=== PATIENT | female | born 1950 | race Caucasian/White ===

== ENCOUNTER 2018-09-10 13:54 | Outpatient (CLI) | payer MEDICARE ==
--- NOTE | 2018-09-10 17:17 | MRI ---
MRI LUMBAR SPINE WITH AND WITHOUT CONTRAST: 09/10/18 Multiplanar and multisequential imaging lumbar spine obtained. INDICATIONS: Low back pain. Radiation to both legs. Comparison made to MRI lumbar spine exam of 12/27/15. FINDINGS: Lumbar vertebra maintain normal height. Cervical body signal is normal. There is a slight posterolist hesis at L2-3 which is unchanged from prior exam. Pedicle screws at L4-5 again noted. At L1-2, minimal disc bulge without central canal stenosis. At L2-3, there is a slight posterolisthesis as noted above. There is a diffuse disc bulge which is mo re prominent than on the prior study. This flattens the anterior thecal sac. There is moderate facet hypertrophy. There is posterior epidural fat. These changes result in mild central canal stenosis. Th ere is left foraminal stenosis due to asymmetric disc bulge and facet hypertrophy. At L3-4, mild diffuse disc bulge combined with facet hypertrophy and posterior epidural fat results i n mild central canal stenosis. Pedicle screws at L5. At L4-5, no significant disc bulge or protrusion. Posterior laminectomy change. No significant centra l canal stenosis. Pedicle screws at L5. At L5-S1, no significant disc bulge or protrusion. IMPRESSION: Broad based bulge at L2-3 is more prominent today resulting in mild central canal stenosis. Mild cent ral canal stenosis also seen at L3-4 as described. POS: ANI
== END 2018-09-10 13:55 | disposition home or self-care (01) ==
LOC: SCSMRI 13:54
PROVIDERS: ATTEND Neurological Surgery
DX: M54.5 Low back pain (principal); M48.061 Spinal stenosis, lumbar region without neurogenic claudication; M79.604 Pain in right leg; M79.605 Pain in left leg; M51.86 Other intervertebral disc disorders, lumbar region
CPT/HCPCS: 72158; 82565

== ENCOUNTER 2018-10-02 10:32 | Outpatient (CLI) | payer MEDICARE ==
--- NOTE | 2018-10-02 14:02 | RAD ---
BIPHASIC ESOPHAGRAM: Date: 10/02/18 HISTORY: Esophageal dysphagia, reflux, irregular bowel habits. FINDINGS: Swallowing is grossly normal. There is unobstructed flow of contrast through the esophagus and into t he stomach. Tertiary contractions are seen in the esophagus. A paraesophageal hiatal hernia is presen t. Severe spontaneous GE reflux demonstrated. A 12 mm tablet passed promptly from the esophagus into the stomach. IMPRESSION: 1. Paraesophageal hiatal hernia. 2. Presbyesophagus. 3. Severe GE reflux. POS: ANI
== END 2018-10-02 10:33 | disposition home or self-care (01) ==
LOC: RAD 10:32
PROVIDERS: ATTEND Internal Medicine Gastroenterology
DX: K21.9 Gastro-esophageal reflux disease without esophagitis (principal); R13.19 Other dysphagia; R19.4 Change in bowel habit; K22.8 Other specified diseases of esophagus; K44.9 Diaphragmatic hernia without obstruction or gangrene
CPT/HCPCS: 74220

== ENCOUNTER 2019-06-18 13:45 | Outpatient (CLI) | payer MEDICARE ==
--- NOTE | 2019-06-18 15:49 | BD ---
Exam: DEXA Bone Density 06/18/19 HISTORY: Osteoporosis. COMPARISON: None. FINDINGS: BMD (g/cm2) T-SCORE Z-SCORE Right wrist: One-third 0.648 -0.8 1.2 Mid 0.607 0.0 1.9 Ultra Distal 0.437 -0.1 1.3 Total 0.561 -0.3 1.5 Left forearm: One-third 0.648 -0.8 1.2 Mid 0.603 -0.1 1.8 Ultra distal 0.451 0.1 1.5 WHO classification: Normal. Impression: Normal bone mineral density. POS: HOME
--- NOTE | 2019-06-24 15:58 | MMO ---
Bilateral MAMMO Bilat Screen DDI+JAKE. CLINICAL HISTORY: Patient is 69 years old and is seen for screening. The patient has no family history of breast cancer. The patient has no personal history of cancer. The patient has a history of left Ultrasound Guided Core Biopsy in December, - benign. VIEWS: The views performed were: bilateral craniocaudal with tomosynthesis and bilateral mediolateral oblique with tomosynthesis. FILMS COMPARED: The present examination has been compared to prior imaging studies performed at [facility] on 09/30/2015, 04/03/2016 and 05/10/2017, and at [facility] on 06/02/2018. MAMMOGRAM FINDINGS: The breasts are heterogeneously dense, which could obscure a lesion on mammography. Benign calcifications are noted bilaterally. Left biopsy clip. There are no suspicious masses, suspicious calcifications, or new areas of architectural distortion. IMPRESSION: THERE IS NO MAMMOGRAPHIC EVIDENCE OF MALIGNANCY. A ROUTINE FOLLOW-UP MAMMOGRAM IN 1 YEAR IS RECOMMENDED. THE RESULTS OF THIS EXAM WERE SENT TO THE PATIENT. ACR BI-RADS Category 2 - Benign finding MAMMOGRAPHY NOTE: 1. A negative mammogram report should not delay a biopsy if a dominant of clinically suspicious mass is present. 2. Approximately 10% to 15% of breast cancers are not detected by mammography. 3. Adenosis and dense breasts may obscure an underlying neoplasm. Reported by: DUTCH DE LEON MD Electonically Signed: [id number]
== END 2019-06-18 13:46 | disposition home or self-care (01) ==
LOC: BICMAMMO 13:45
PROVIDERS: ATTEND Obstetrics & Gynecology
DX: Z12.31 Encounter for screening mammogram for malignant neoplasm of breast (principal); M81.0 Age-related osteoporosis without current pathological fracture; M85.80 Other specified disorders of bone density and structure, unspecified site; Z79.890 Hormone replacement therapy; Z91.89 Other specified personal risk factors, not elsewhere classified
CPT/HCPCS: 77063; 77067; 77080

== ENCOUNTER 2020-06-02 15:49 | Observation (INO) | payer MEDICARE ==
[2020-06-02] MEDS ORDERED: Ondansetron PF 4 MG/2 ML Vial ONE (16:18)
[2020-06-02] MEDS ORDERED: Ketorolac Tromethamine 30 MG/ML VIAL ONE (16:18)
[2020-06-02 16:37] LABS: #Basophils 0.1 thou/uL (0.0-0.2); #Eosinphils 0.1 thou/uL (0.0-0.7); #Lymphocytes 2.2 thou/uL (1.20-3.40); #Monocytes 0.7 thou/uL (0.11-0.59); #Neutrophils 8.2 thou/uL (1.40-6.50); %Basophils 0.7 % (0.0-1.0); %Eosinophils 0.5 % (0.0-10.0); %Lymphocytes 19.6 % (21.0-51.0); %Neutrophils 73.2 % (42.0-75.0); Hemoglobin 14.9 g/dL (12.0-16.0); Mean Corpuscular HGB CONC 33.5 g/dL (32.0-36.0); Mean Corpuscular Hemoglobin 33.5 pg (27.0-31.0); Mean Platelet Volume 7.3 fL (7.4-10.4); Platelet Count 332 thou/uL (130-400); Red Blood Cell (RBC) Count 4.46 mill/uL (4.20-5.40); White Blood Cell (WBC) Count 11.2 thou/uL (4.8-10.8)
--- NOTE | 2020-06-02 16:42 | RAD ---
CHEST 1 VIEW PORTABLE: Date: 06/02/2020 HISTORY: Preoperative evaluation. FINDINGS: Evidence for moderate to large hiatal hernia. No confluent pneumonia, overt edema, or pleural effusio n. IMPRESSION: Moderate to large hiatal hernia. Little change from prior exam of 10/02/2018. No evidence for signifi cant acute intrathoracic disease. POS: RRE
[2020-06-02 16:43] LABS: Prothrombin Time 13.3 sec (12.0-14.7)
--- NOTE | 2020-06-02 16:48 | CON ---
DATE OF CONSULTATION: CHIEF COMPLAINT: Left ankle pain. HISTORY OF PRESENT ILLNESS: Ms. Hoffman is a 70-year-old female who fell walking in her daughter's house today. She tripped over a toy. She twisted her ankle. She had an ankle fracture. She was seen in an urgent care and then transferred for further care. She has been found to have a displaced bimalleolar ankle fracture. She has been splinted. She is resting in a splint and has been given pain control. She ate a whataburger on the way over to the hospital. No other injuries. PAST MEDICAL HISTORY: 1. The patient has osteoporosis. 2. Hypertension. 3. She also has fibromyalgia. PAST SURGICAL HISTORY: 1. Bilateral total hip arthroplasties. 2. Left total knee arthroplasty. 3. No previous fractures. ALLERGIES: NO KNOWN DRUG ALLERGIES. MEDICATIONS: The patient takes medication for fibromyalgia and hypertension and she does not know the exact medications. SOCIAL HISTORY: The patient denies tobacco, alcohol, or drug use. She walks normally without any assistive device. FAMILY MEDICAL HISTORY: Negative. PHYSICAL EXAMINATION: GENERAL: The patient is alert, sitting upright, in no apparent distress. HEENT: Normocephalic and atraumatic. RESPIRATORY: Breathing comfortably. ABDOMEN: Soft, nontender, and nondistended. MUSCULOSKELETAL: The patient's left ankle has a splint, which is partially removed. The skin is intact. She does have some swelling of the medial ankle. No blistering. She has intact sensation on the dorsal and plantar aspect of the foot. She is able to wiggle the toes. Sensation is intact distally. IMAGING STUDIES: X-rays of the left ankle demonstrate a bimalleolar ankle fracture with lateral subluxation of the talus, this is acute. IMPRESSION: Left unstable bimalleolar ankle fracture. PLAN: At this point, the patient will remain in her splint. She will elevate her foot strictly. She will be n.p.o. at midnight. We will plan for surgical intervention tomorrow morning. She will have pain control and DVT prophylaxis. She will have antibiotics on-call to the operating room. All questions have been answered. Risks have been reviewed. Job ID: [id number]
[2020-06-02 16:56] LABS: ALT (SGPT) 25 U/L (8-55); AST (SGOT) 22 U/L (5-34); Albumin 4.6 g/dL (3.4-4.8); Alkaline Phosphatase 76 U/L (40-110); Anion Gap 13 mmol/L (10-20); BUN (Urea Nitrogen) 19 mg/dL (9.8-20.1); Bilirubin, Total 0.4 mg/dL (0.2-1.2); Calc. Creatinine Clearance 0 mL/min (70-130); Calcium 9.8 mg/dL (7.8-10.44); Carbon Dioxide 26 mmol/L (23-31); Chloride 105 mmol/L (98-107); Estimated GFR-MDRD 62; Globulin 3.1 g/dL (2.4-3.5); Glucose 155 mg/dL (80-115); Potassium 3.8 mmol/L (3.5-5.1); Protein, Total 7.7 g/dL (6.0-8.3); Sodium 140 mmol/L (136-145)
[2020-06-02] MEDS ORDERED: Ondansetron PF 4 MG/2 ML Vial IVP PRN ×2 (18:02→19:46)
[2020-06-02] MEDS ORDERED: Dextrose 5% in Water 1,000 ML IV PRN (18:02)
[2020-06-02] MEDS ORDERED: Dextrose 50% Abboject 50 ML SYRINGE SLOW IVP PRN (18:02)
[2020-06-02] MEDS ORDERED: traMADol HCl 50 MG TAB PO PRN ×2 (18:09→22:42)
[2020-06-02] MEDS ORDERED: HYDROcodone/Acetaminophen 5/325 mg Tablet PO PRN ×2 (18:09→22:42)
[2020-06-02 18:33] LABS: Bacteria/HPF None Seen HPF (None Seen); Bilirubin Negative (Negative); Blood, Urine Negative (Negative); Clarity Clear (Clear); Glucose, Urine (Dipstick) Normal (Negative); Ketone, Urine Negative (Negative); Leukocyte 500 Leu/uL (Negative); Nitrite Negative (Negative); Protein, Urine (Dipstick) 20 mg/dL (Neg-Trace); RBC/HPF 0-3 HPF (0-3); Transitional Epithelial 0-3 HPF (None Seen); Urobilinogen Normal mg/dL (Less than 2); WBC/HPF Greater than 50 HPF (0-3); pH, Urine 5.5 (5.0-9.0)
--- NOTE | 2020-06-02 19:07 | HP ---
CRITICAL CARE/TRAUMA ATTENDING: Yordan Babcock DO PRIMARY CARE PHYSICIAN: Ken Garcia MD HISTORY OF PRESENT ILLNESS: Ms. Hoffman is a 70-year-old female with past medical history of fibromyalgia; hypertension; hyperlipidemia; chronic back pain; skin cancer, squamous cell in nature, presents to the emergency department from [facility] with a left trimalleolar ankle fracture, status post reduction and splint placement. Orthopedics has been consulted, who recommended admission and operative repair in the morning. The patient has no other injury. She states that she slipped on a rug at her daughter's house early this morning and finally presented with pain. She has again no other injuries and did not strike her head. No neck pain. No back pain. No shortness of air. No nausea, vomiting, or diarrhea. No sick contacts. No recent fever. No cough. No head pain. She does have chronic back pain. She does have a little bit of right elbow pain, but has full range of motion. REVIEW OF SYSTEMS: Pertinent positives and negatives per HPI, otherwise regarded as negative. PAST MEDICAL HISTORY: Fibromyalgia, hypertension, hyperlipidemia, chronic back pain, and skin cancer. PAST SURGICAL HISTORY: Bilateral hip replacements, left knee replacement, eve to the spine by Dr. Mckeon, hysterectomy, tubal ligation prior to the hysterectomy, cataract surgeries and lens implants. MEDICATIONS: 1. Simvastatin. 2. Omeprazole. 3. Lisinopril/hydrochlorothiazide 20/12.5. 4. Aspirin 325 mg daily. 5. Xanax 0.25 mg nightly. 6. CoQ10. 7. Lyrica 75 mg at night and 50 mg in the morning. 8. Multivitamin. 9. Savella. 10. Meloxicam. 11. [place] . 12. Flaxseed oil. 13. Shanta. 14. Stool softeners. 15. Flexeril. ALLERGIES: NO KNOWN DRUG ALLERGIES. FAMILY HISTORY: Significant for arthritis in her mother who is 100 years old, living and has actually survived COVID. Heart disease resulted in her father's at age 84. SOCIAL HISTORY: The patient is a lifelong nonsmoker. No tobacco use. Occasionally drinks alcohol. 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 She is for 50 years and lives in [place]. PHYSICAL EXAMINATION: VITAL SIGNS: Blood pressure 126/86, heart rate is 106. She is saturating 98%, breathing 14 times per minute. GENERAL: A 70-year-old female, sitting up in no acute distress. HEENT: Normocephalic, atraumatic. NECK: Trachea is midline. No JVD is appreciated. RESPIRATORY: Equal rise and fall. Bilateral breath sounds. Clear to auscultation in upper and lower bilaterally. CARDIOVASCULAR: She has a tachycardic regular rhythm. I do feel like there is a diastolic murmur, clicking or possibly opening snap, I am unsure. She states that she has never had a murmur in the past. She has strong pulses. No edema. ABDOMEN: Protuberant, but soft and nontender. No masses, guarding, or rigidity. Pelvis is stable. MUSCULOSKELETAL: She has sensation in all extremities. She has sensation even distal to the left lower extremity. The left lower extremity is in a splint. She has good cap refill, some tenderness to the right elbow, no gross deformity, and full range of motion. NEUROLOGIC: Alert and oriented to person, place, time, and event. PSYCHIATRIC: Normal mood and affect. DIAGNOSTIC CRITERIA: LABORATORY: White blood cell count 11.2, platelets are 332, hemoglobin and hematocrit 14.9 and 44.7 respectively. Sodium is 140, potassium 3.5, chloride is 105, CO2 is 26, BUN of 19, creatinine 0.9, glucose 155, calcium 9.8, total bilirubin 0.4, AST and ALT 22 and 25 respectively, alkaline phosphatase is 76. INR is 1.0. A chest x-ray shows a hiatal hernia. Ankle x-ray shows a trimalleolar with ankle mortise disruption of the left. ASSESSMENT: 1. Left trimalleolar ankle fracture needing operative repair. 2. Acute traumatic pain. 3. Hyperglycemia without known diabetes. 4. History of hypertension, hyperlipidemia, chronic pain, and fibromyalgia. PLAN: 1. We will admit the patient to surgery [place]. 2. Pain management. 3. Trauma bowel regimen. 4. Orthopedics was consulted. Appreciate recommendations. 5. N.p.o. after midnight. 6. Check hemoglobin A1c. 7. We will continue home medications. 8. PT/OT eval. 9. Diet will be n.p.o. after midnight and then a regular diet. 10. Full code. 11. Access of peripheral IVs. She has a PureWick in place. 12. Activity is going to be nonweightbearing to left lower extremity. 13. Disposition is to surgery [place]. 14. Coordinate care with the emergency department staff and the orthopedics team. Case was discussed Dr. Babcock and can be updated as needed. Job ID: [id number]
[2020-06-02] MEDS ORDERED: Ondansetron ODT 4 MG TAB SL PRN (19:46)
[2020-06-02] MEDS ORDERED: Morphine 4 MG/ML VIAL SLOW IVP PRN (19:46)
[2020-06-02] MEDS ORDERED: Gabapentin 300 MG CAP PO SCH (21:00)
[2020-06-02] MEDS ORDERED: Atorvastatin Calcium 10 MG TAB PO SCH (21:00)
[2020-06-02] MEDS ORDERED: Docusate Sodium 100 MG/10 ML UDCUP PO PRN (21:16)
[2020-06-02 21:33] VITALS: BMI 35.2
[2020-06-02] MEDS ORDERED: TAPENTADOL HCL PO SCH (22:45)
[2020-06-02] MEDS ORDERED: CEFAZOLIN 2 GM in Premix Bag 1 BAG IVPB SCH (22:45)
[2020-06-02] MEDS: Ibuprofen 200 MG TAB PO SCH (22:56)
[2020-06-02] MEDS: Acetaminophen 325 MG TAB PO SCH (23:00)
[2020-06-02] MEDS: traMADol HCl 50 MG TAB PO SCH (23:01)
[2020-06-02] MEDS ORDERED: Acetaminophen 325 MG TAB PO SCH (23:59)
[2020-06-02] MEDS ORDERED: traMADol HCl 50 MG TAB PO SCH (23:59)
[2020-06-03 05:22] LABS: #Eosinphils 0.1 thou/uL (0.0-0.7); #Lymphocytes 1.5 thou/uL (1.20-3.40); #Monocytes 0.6 thou/uL (0.11-0.59); #Neutrophils 4.4 thou/uL (1.40-6.50); %Basophils 0.6 % (0.0-1.0); %Eosinophils 1.3 % (0.0-10.0); %Lymphocytes 23.2 % (21.0-51.0); %Monocytes 8.9 % (0.0-10.0); Hemoglobin 11.9 g/dL (12.0-16.0); Mean Corpuscular HGB CONC 32.8 g/dL (32.0-36.0); Mean Corpuscular Hemoglobin 33.1 pg (27.0-31.0); Mean Platelet Volume 7.4 fL (7.4-10.4); Platelet Count 248 thou/uL (130-400); RBC Distribution Width 11.9 % (11.5-14.5); White Blood Cell (WBC) Count 6.6 thou/uL (4.8-10.8)
[2020-06-03] MEDS: Acetaminophen 325 MG TAB PO SCH ×2 (05:28→13:20)
[2020-06-03] MEDS: traMADol HCl 50 MG TAB PO SCH ×3 (05:28→18:21)
[2020-06-03 05:44] LABS: Anion Gap 9 mmol/L (10-20); BUN (Urea Nitrogen) 17 mg/dL (9.8-20.1); Calc. Creatinine Clearance 103 mL/min (70-130); Calcium 8.7 mg/dL (7.8-10.44); Carbon Dioxide 28 mmol/L (23-31); Chloride 109 mmol/L (98-107); Estimated GFR-MDRD 75; Glucose 106 mg/dL (80-115); Magnesium 2.1 mg/dL (1.6-2.6); Phosphorus 4.4 mg/dL (2.3-4.7); Potassium 4.6 mmol/L (3.5-5.1); Sodium 141 mmol/L (136-145)
[2020-06-03] MEDS ORDERED: SAVELLA 100 MG PO SCH (08:00)
[2020-06-03] MEDS ORDERED: CEFAZOLIN 2 GM in Premix Bag 1 BAG IVPB SCH (08:00)
[2020-06-03] MEDS ORDERED: Lisinopril/Hydrochlorothiazide 20 mg/12.5 mg Tablet PO SCH (09:00)
[2020-06-03] MEDS ORDERED: TAPENTADOL HCL PO SCH (09:00)
[2020-06-03] MEDS: Mometasone 100 MCG/Formoterol 5 MCG 120 PUFF INHALER INH SCH (09:25)
[2020-06-03] MEDS ORDERED: HYDROcodone/Acetaminophen 5/325 mg Tablet PO PRN (09:51)
[2020-06-03] MEDS ORDERED: Scopolamine 1.5 mg/72 hour Patch ONE (10:02)
[2020-06-03] MEDS ORDERED: Fentanyl 100 MCG/2 ML VIAL ONE ×4 (10:27→12:50)
[2020-06-03] MEDS: Atorvastatin Calcium 40 MG TAB PO SCH (11:24)
[2020-06-03] MEDS: Cholecalciferol 1,000 UNITS (25 MCG) TAB PO SCH (11:25)
[2020-06-03] MEDS: Lisinopril/Hydrochlorothiazide 20 mg/12.5 mg Tablet PO SCH (11:25)
[2020-06-03] MEDS: Magnesium Oxide 250 MG TAB PO SCH (11:25)
[2020-06-03] MEDS: Gabapentin 300 MG CAP PO SCH ×2 (11:25→21:20)
[2020-06-03] MEDS: Cyanocobalamin (Vitamin B-12) 1,000 MCG TAB PO SCH (11:25)
[2020-06-03] MEDS: cycloSPORINE 0.05% Ophthalmic Droperette EA EYE SCH ×2 (11:26→21:20)
[2020-06-03] MEDS: TAPENTADOL HCL PO SCH ×3 (11:26→21:19)
[2020-06-03] MEDS: Multivitamin W/ Minerals 1 TAB PO SCH (11:26)
[2020-06-03] MEDS ORDERED: Promethazine HCl 25 MG/ML VIAL SLOW IVP PRN (11:28)
[2020-06-03] MEDS ORDERED: Promethazine HCl 25 MG/ML VIAL IM PRN (11:28)
[2020-06-03] MEDS ORDERED: PACU-Morphine 4MG/ML VIAL SLOW IVP PRN (11:28)
[2020-06-03] MEDS ORDERED: Morphine 4 MG/ML VIAL ONE ×2 (12:22→13:12)
[2020-06-03] MEDS ORDERED: Ondansetron PF 4 MG/2 ML Vial ONE (13:21)
[2020-06-03] MEDS ORDERED: Lidocaine 1% PF 5 ML VIAL ONE (13:21)
[2020-06-03] MEDS ORDERED: Dexamethasone 20 MG/5 ML VIAL ONE (13:21)
[2020-06-03] MEDS ORDERED: Metoprolol Tartrate 5 MG/5 ML VIAL ONE (13:21)
[2020-06-03] MEDS ORDERED: PROPOFOL 200 MG/20 ML VIAL ONE (13:21)
[2020-06-03] MEDS ORDERED: Cyclobenzaprine 10 MG TAB PO PRN (16:36)
[2020-06-03] MEDS: Ibuprofen 200 MG TAB PO SCH ×3 (16:42→21:22)
--- NOTE | 2020-06-03 16:53 | RAD ---
Exam: XR Ankle Lt 2 View HISTORY: ORIF left ankle. COMPARISON: 06/02/2020 FINDINGS: A lateral plate and multiple screws now transfix the previously seen fracture distal left fibula. 2 s crews now transfix the fracture of the medial malleolus. There is improvement in alignment of the fracture fragments. There has been improvement in dislocation at the tibiotalar joint with interval r eduction in the dislocation. Correlation with intraoperative findings is recommended. Fluoroscopy: Time-4.9 seconds Dose-0.16 mGy
--- NOTE | 2020-06-03 17:02 | PRG ---
DATE OF SERVICE: 06/03/2020 SUBJECTIVE: The patient was seen this morning during rounds. She was postop after fixation of a left trimalleolar fracture after mechanical fall from standing. Upon our evaluation, the patient reported her pain was well controlled, but she was complaining that she was very hot and nauseous postoperatively, generally not feeling very good after anesthesia. She has not worked with Physical or Occupational Therapy yet. She has not had anything to eat or drink yet. She has not voided yet. OBJECTIVE: VITAL SIGNS: Temperature 98, pulse 90, respirations 16, oxygen saturation 96% on room air, blood pressure 104/69. GENERAL: Well-appearing elderly female, sitting up in bed with no signs of acute distress. PULMONARY: Equal chest rise and fall. Clear breath sounds bilaterally. No signs of acute respiratory distress. CARDIAC: Regular rate and rhythm. GI: Abdomen is soft, nontender, and nondistended. EXTREMITIES: 2+ pulses in all extremities. No significant swelling noted. The patient has a splint to her left lower extremity that is clean, dry, and intact. NEUROLOGIC: GCS is 15. LABORATORY FINDINGS: White count 6.6, hemoglobin 11.9, hematocrit 36.3, platelets 248. Sodium 141, potassium 4.6, chloride 109, bicarb 28, BUN 17, creatinine 0.76, glucose 106, phosphorus 4.4, magnesium 2.1. DIAGNOSTIC FINDINGS: There are no new diagnostic findings to report. ASSESSMENT: 1. Status post mechanical fall from standing. 2. Left trimalleolar fracture, status post repair. 3. History of fibromyalgia, chronic back pain, hypertension, and hyperlipidemia. PLAN: Continue current diet and pain regimen. Start physical and occupational therapy. Restart home medications as clinically indicated. We will wait for the patient to continue to recover from anesthesia as well as gain further recommendations by Orthopedic Surgery before discharging the patient home. We will start the patient on Lovenox tomorrow for DVT prophylaxis. This patient was seen and examined by Dr. Babcock and myself this morning during rounds. Job ID: [id number]
[2020-06-03] MEDS: Acetaminophen 500 MG TAB PO SCH (18:22)
--- NOTE | 2020-06-03 20:09 | OP ---
DATE OF PROCEDURE: 06/03/2020 PREOPERATIVE DIAGNOSIS: Left trimalleolar ankle fracture. POSTOPERATIVE DIAGNOSIS: Left trimalleolar ankle fracture. PROCEDURE PERFORMED: Open reduction and internal fixation of left trimalleolar ankle fracture. ANESTHESIA: General. FORESTRY PILOT: [place]. TOURNIQUET TIME: 41 minutes at 300 mmHg. IMPLANTS: Synthes locking small frag set was used with a 6-hole 1/3 tubular plate for the lateral malleolus. COMPLICATIONS: None. DRAINS: None. SPECIMEN: None. OUTCOME: Satisfactory. INDICATIONS FOR PROCEDURE: The patient is a 70-year-old lady, status post ground level fall sustaining a twisting injury to left lower extremity. Upon arrival at [place], she was found to have a trimalleolar ankle fracture with a very small posterior malleolar fragment and a displaced and somewhat laterally subluxed talus within the mortise. After discussion with the patient including risks and benefits, we decided to proceed with open reduction and internal fixation. Informed consent has been obtained. I believe all questions answered. DESCRIPTION OF PROCEDURE: The patient was brought to the operating room and a time-out performed followed by induction of general anesthesia. The patient was then positioned supine on the OR table and a sterile prep and drape was performed to the left lower extremity. Next, the limb was exsanguinated with Esmarch bandage and tourniquet inflated to 300 mmHg. A vertical incision was made overlying the lateral malleolus after skin was sharply incised. Dissection was carried down bluntly exposing the lateral cortex of the distal fibula. Using minimal subperiosteal dissection, fracture periosteum was removed from the fracture gap, such that the edges of the cortex at the fracture could be visualized. The fracture was then reduced and held in place with a bone tenaculum. Next, an anterior to posterior inter-fragmentary compression screw was applied, this getting excellent compression across the fracture. This was then followed by contouring of a 6-hole 1/3 tubular plate to fit the lateral cortex of the distal fibula. This was held in place with 2 cancellous screws distally and 3 cortical screws proximally gaining good stabilization of the lateral malleolus. Next, a second incision was made overlying the medial malleolus after skin was sharply incised. Dissection was carried down bluntly exposing the fracture. Again, periosteal flaps were removed from the fracture and the fracture reduced and held in place with a bone tenaculum. This was followed by two 45 mm long partially-threaded cancellous screws passed from the tip of the medial malleolus up into the distal tibial metaphysis. At the completion of this, AP, lateral, and mortise images of the ankle were obtained that showed near anatomic alignment. The small posterior malleolar fragment was very minor portion of the total surface area of the distal tibia and as such, it was left alone. The 2 wounds were then irrigated with bulb syringe and closed in layers with 0 Vicryl followed by 2-0 Vicryl and gregory. Xeroform gauze, Webril, and fiberglass splint were applied to the leg. Tourniquet was let down at the completion of dressing and the patient was transferred to recovery room in stable condition. There were no complications. The patient tolerated the procedure well. Job ID: [id number]
[2020-06-03] MEDS ORDERED: MILNACIPRAN HCL 100 MG PO SCH (21:00)
[2020-06-03] MEDS: sulfaSALAzine 500 MG TAB PO SCH (21:22)
[2020-06-04] MEDS: traMADol HCl 50 MG TAB PO SCH ×3 (00:20→12:09)
[2020-06-04] MEDS: Acetaminophen 500 MG TAB PO SCH ×3 (00:20→12:08)
[2020-06-04 05:49] LABS: Hemoglobin 12.2 g/dL (12.0-16.0); Mean Corpuscular HGB CONC 32.6 g/dL (32.0-36.0); Mean Corpuscular Hemoglobin 32.8 pg (27.0-31.0); Mean Platelet Volume 7.8 fL (7.4-10.4); Platelet Count 261 thou/uL (130-400); RBC Distribution Width 11.9 % (11.5-14.5); Red Blood Cell (RBC) Count 3.71 mill/uL (4.20-5.40); White Blood Cell (WBC) Count 8.5 thou/uL (4.8-10.8)
[2020-06-04] MEDS: Ibuprofen 200 MG TAB PO SCH (05:58)
[2020-06-04 06:16] LABS: Anion Gap 11 mmol/L (10-20); BUN (Urea Nitrogen) 12 mg/dL (9.8-20.1); Calc. Creatinine Clearance 111 mL/min (70-130); Calcium 8.7 mg/dL (7.8-10.44); Carbon Dioxide 25 mmol/L (23-31); Chloride 107 mmol/L (98-107); Estimated GFR-MDRD 83; Glucose 109 mg/dL (80-115); Phosphorus 4.2 mg/dL (2.3-4.7); Potassium 4.5 mmol/L (3.5-5.1); Sodium 138 mmol/L (136-145)
[2020-06-04] MEDS: Mometasone 100 MCG/Formoterol 5 MCG 120 PUFF INHALER INH SCH (07:14)
[2020-06-04] MEDS ORDERED: Enoxaparin Sodium 40 MG/0.4 ML SYRINGE SC SCH (09:00)
[2020-06-04] MEDS: Cholecalciferol 1,000 UNITS (25 MCG) TAB PO SCH (10:04)
[2020-06-04] MEDS: Gabapentin 300 MG CAP PO SCH (10:05)
[2020-06-04] MEDS: Magnesium Oxide 250 MG TAB PO SCH (10:05)
[2020-06-04] MEDS: Multivitamin W/ Minerals 1 TAB PO SCH (10:05)
[2020-06-04] MEDS: Atorvastatin Calcium 40 MG TAB PO SCH (10:05)
[2020-06-04] MEDS: Cyanocobalamin (Vitamin B-12) 1,000 MCG TAB PO SCH (10:05)
[2020-06-04] MEDS: Lisinopril/Hydrochlorothiazide 20 mg/12.5 mg Tablet PO SCH (10:05)
[2020-06-04] MEDS: cycloSPORINE 0.05% Ophthalmic Droperette EA EYE SCH (10:07)
[2020-06-04 11:59] VITALS: BP 113/76; TEMP 97.6
[2020-06-04] MEDS: sulfaSALAzine 500 MG TAB PO SCH (12:10)
[2020-06-04] MEDS: TAPENTADOL HCL PO SCH (12:12)
--- NOTE | 2020-06-04 16:48 | DIS ---
DATE OF ADMISSION: 06/02/2020 DATE OF DISCHARGE: 06/04/2020 ADMISSION DIAGNOSES: Mechanical fall from standing, right trimalleolar fracture, acute traumatic pain. DISCHARGE DIAGNOSES: Mechanical fall from standing, right trimalleolar fracture, acute traumatic pain. CONSULTING PHYSICIAN: Dr. Rogers of Orthopedic Surgery. PROCEDURES: The patient went to the OR on June 03, 2020 and had an ORIF of the left trimalleolar ankle fracture. HOSPITAL COURSE: The patient is a 70-year-old female, presented to the emergency department after a mechanical fall from standing, she had a left trimalleolar fracture and she was admitted to the hospital and the next day she went to the OR with Dr. Rogers and had an ORIF of the left trimalleolar fracture. The patient has a history of chronic pain and sees a pain specialist. We continued her home gabapentin, but placed her on our medications for acute pain, which included Tylenol, gabapentin, ibuprofen, and tramadol. At the time of discharge, her pain was well controlled on that regimen. At time of discharge, the patient's pain was well controlled. She was tolerating a heart healthy diet. She was getting around safely with a walker with physical therapy. Her daughter was at bedside and the patient was going to be discharged home with family support. DISCHARGE DISPOSITION: Home. DISCHARGE CONDITION: Satisfactory. PHYSICAL EXAMINATION: VITAL SIGNS: Temperature 97.6, pulse rate 84, respirations are 16, oxygen saturation 99% on room air, and blood pressure 113/76. GENERAL: A well-appearing elderly female, sitting up in bed with no signs of acute distress. PULMONARY: Equal chest rise and fall. Clear breath sounds bilaterally. No signs of acute respiratory distress. CARDIAC: Regular rate and rhythm. GASTROINTESTINAL: Soft, nontender, and nondistended. EXTREMITIES: 2+ pulses in all extremities. Gross motor and sensation intact. No significant swelling noted. The patient has a splint to her left lower extremity that is clean, dry, and intact. NEUROLOGIC: GCS is 15. DISCHARGE INSTRUCTIONS: The patient was discharged home, activity as tolerated. Nonweightbearing to the left lower extremity. Regular diet. She has a walker. DISCHARGE MEDICATIONS: Include her home medications with the addition of Tylenol, ibuprofen, and tramadol. The patient is taking her home gabapentin dose. She is to receive also Lovenox for a total of 14 days after discussing with the pharmacist about her pain regimen. The patient was also instructed to hold her home Nucynta, which is prescribed by Dr. Funk, her pain specialist. The trauma team will contact Dr. Funk on Saturday when he is back in his office to inform him, we asked the patient to hold her long-term pain medication and use our pain regimen including tramadol in order to treat her acute traumatic pain and acute postoperative pain for the next two weeks. I also did discuss this with the pharmacist I filled her prescription. FOLLOWUP APPOINTMENTS: The patient is to follow up with Dr. Rogers in 2 weeks. No need for followup with Dr. Babcock and Trauma Clinic. This is a summary of the patient's hospitalization. For full details, please see her medical record in its entirety. The patient was seen and evaluated by myself on the day of discharge. Job ID: [id number]
== END 2020-06-04 13:55 | disposition home or self-care (01) ==
LOC: ERS 15:49 → SURG A 16:48 → ERS 19:17
PROVIDERS: ADMIT Surgery; ATTEND Surgery
PROC: 0QSK04Z Reposition Left Fibula with Internal Fixation Device, Open Approach (ICD-10-PCS; principal; 2020-06-03)
PROC: 0QSH04Z Reposition Left Tibia with Internal Fixation Device, Open Approach (ICD-10-PCS; 2020-06-03)
DX: S82.852A Displaced trimalleolar fracture of left lower leg, initial encounter for closed fracture (principal); G89.11 Acute pain due to trauma; R73.9 Hyperglycemia, unspecified; I10 Essential (primary) hypertension; E78.5 Hyperlipidemia, unspecified; G89.29 Other chronic pain; M54.9 Dorsalgia, unspecified; M79.7 Fibromyalgia; M81.0 Age-related osteoporosis without current pathological fracture; J45.909 Unspecified asthma, uncomplicated; K21.9 Gastro-esophageal reflux disease without esophagitis; Z79.82 Long term (current) use of aspirin; Z79.899 Other long term (current) drug therapy; X50.1XXA Overexertion from prolonged static or awkward postures, initial encounter; W01.0XXA Fall on same level from slipping, tripping and stumbling without subsequent striking against object, initial encounter; Y92.009 Unspecified place in unspecified non-institutional (private) residence as the place of occurrence of the external cause
CPT/HCPCS: 27822; 71045; 73600; 76000; 80048 ×2; 80053; 83735 ×2; 84100 ×2; 85025 ×2; 85027; 85610; 85730; 93005; 94640 ×2; 94664; 96361; 96374; 96375; 97116; 97139 ×5; 99284; C1713 ×5; 36415; 81003; 81015; 96372; 96376; G0378; J0690; J1100; J1650; J1885; J2001; J2270; J2405; J2704; J3010

== ENCOUNTER 2021-01-04 13:57 | Outpatient (CLI) | payer MEDICARE ==
--- NOTE | 2021-01-04 14:34 | MMO ---
Bilateral MAMMO Bilat Diag DDI+JAKE. CLINICAL HISTORY: Patient is 70 years old and is seen for diagnostic exam. The patient has no family history of breast cancer. The patient has no personal history of cancer. The patient has a history of left Ultrasound Guided Core Biopsy in December, - benign. VIEWS: The views performed were: bilateral craniocaudal with tomosynthesis; bilateral mediolateral oblique with tomosynthesis; and bilateral mediolateral with tomosynthesis. FILMS COMPARED: The present examination has been compared to prior imaging studies performed at [facility] on 05/10/2017, 06/18/2019 and 01/04/2021, and at [facility] on 06/02/2018. This study has been interpreted with the assistance of computer-aided detection. MAMMOGRAM FINDINGS: The breasts are heterogeneously dense, which could obscure a lesion on mammography. Finding 1: There are stable benign appearing calcifications seen in both breasts. A biopsy clip is seen in the left breast. Finding 2: There are no mammographic abnormalities to explain the patient's breast pain. The patient is referred back to her clinician. Negative imaging findings should not preclude biopsy if clinical findings are suspicious. There are no suspicious masses, suspicious calcifications, or new areas of architectural distortion. IMPRESSION: FINDING 2: THERE ARE NO MAMMOGRAPHIC ABNORMALITIES TO EXPLAIN THE PATIENT'S BREAST PAIN. THE PATIENT IS REFERRED BACK TO HER CLINICIAN. NEGATIVE IMAGING FINDINGS SHOULD NOT PRECLUDE BIOPSY IF CLINICAL FINDINGS ARE SUSPICIOUS. THE RESULTS OF THIS EXAM WERE SENT TO THE PATIENT. ACR BI-RADS Category 2 - Benign finding MAMMOGRAPHY NOTE: 1. A negative mammogram report should not delay a biopsy if a dominant of clinically suspicious mass is present. 2. Approximately 10% to 15% of breast cancers are not detected by mammography. 3. Adenosis and dense breasts may obscure an underlying neoplasm. Reported by: LUIS M ROMAN MD Electonically Signed: [id number]
== END 2021-01-04 13:58 | disposition home or self-care (01) ==
LOC: BICMAMMO 13:57
PROVIDERS: ATTEND Obstetrics & Gynecology
DX: N64.4 Mastodynia (principal)
CPT/HCPCS: 77066; G0279

== ENCOUNTER 2021-08-22 14:42 | Outpatient (CLI) | payer MEDICARE | END 2021-08-22 14:43 | disposition home or self-care (01) | LOC: BICRAD 14:42 | PROVIDERS: ATTEND Nurse Practitioner Family | DX: M79.671 Pain in right foot (principal) ==

== ENCOUNTER 2023-01-30 14:24 | Outpatient (CLI) | payer MEDICARE ==
[2023-01-30 16:23] LABS: #Basophils 0.1 10x3/uL (0.0-0.2); #Eosinphils 0.4 10x3/uL (0.0-0.5); #Monocytes 0.7 10x3/uL (0.0-1.1); #Neutrophils 3.8 10x3/uL (1.5-8.4); %Basophils 0.8 % (0.0-2.0); %Eosinophils 5.7 % (0.0-6.0); %Lymphocytes 32.6 % (18.0-47.0); %Monocytes 9.2 % (0.0-10.0); %Neutrophils 51.3 % (40.0-75.0); Hemoglobin 10.8 g/dL (12.0-15.5); Mean Corpuscular HGB CONC 30.8 g/dL (32.0-36.0); Mean Corpuscular Hemoglobin 27.8 pg (27.0-33.0); Mean Corpuscular Volume 90.2 fl (81.6-98.3); Mean Platelet Volume 10.9 fl (7.4-10.4); Platelet Count 489 10x3/uL (150-450); RBC Distribution Width 15.1 % (11.5-14.5); Red Blood Cell (RBC) Count 3.89 10x6/uL (3.90-5.03); White Blood Cell (WBC) Count 7.4 10x3/uL (3.5-10.5)
[2023-01-30 16:40] LABS: Anion Gap 16 mmol/L (10-20); BUN (Urea Nitrogen) 14 mg/dL (9.8-20.1); Calc. Creatinine Clearance 0 mL/min (70-130); Calcium 9.1 mg/dL (7.8-10.44); Carbon Dioxide 24 mmol/L (23-31); Chloride 104 mmol/L (98-107); Estimated GFR 86; Glucose 102 mg/dL (83-110); Potassium 4.2 mmol/L (3.5-5.1); Prothrombin Time 10.7 sec (9.5-12.1); Sodium 140 mmol/L (136-145)
== END 2023-01-30 14:25 | disposition home or self-care (01) ==
LOC: LABBT 14:24
PROVIDERS: ATTEND Orthopaedic Surgery
DX: Z01.818 Encounter for other preprocedural examination (principal); M17.11 Unilateral primary osteoarthritis, right knee
CPT/HCPCS: 80048; 85025; 85610; 87081; 93005; 93010

== ENCOUNTER 2023-02-04 05:41 | Observation (INO) | payer MEDICARE ==
[2023-02-04] MEDS ORDERED: Tranexamic Acid 1,000 MG/10 ML VIAL ONE (06:03)
[2023-02-04] MEDS ORDERED: Sodium Chloride 0.9% 100 ML ONE ×2 (06:03→06:58)
[2023-02-04] MEDS ORDERED: Vancomycin (BATCH) 1.5 GRAM/300 ML BAG ONE (06:04)
[2023-02-04] MEDS ORDERED: fentaNYL PF 100 MCG/2 ML SYRINGE ONE ×2 (06:09→13:49)
[2023-02-04] MEDS ORDERED: Midazolam HCl 2 mg/2 ml Vial ONE (06:09)
[2023-02-04] MEDS ORDERED: PHENYLEPHRINE-NS 100 MCG/ML 10 ML SYRINGE ONE (06:10)
[2023-02-04] MEDS ORDERED: Bupivacaine PF 0.5% 30 ML VIAL ONE ×2 (06:24→08:29)
[2023-02-04] MEDS ORDERED: Dexamethasone 20 MG/5 ML VIAL ONE (06:30)
[2023-02-04] MEDS ORDERED: PROPOFOL 200 MG/20 ML VIAL ONE (06:30)
[2023-02-04] MEDS ORDERED: Lidocaine 1% PF 5 ML VIAL ONE (06:30)
[2023-02-04] MEDS ORDERED: Ondansetron PF 4 MG/2 ML Vial ONE (06:30)
[2023-02-04] MEDS ORDERED: Bupivacaine HCl 0.5%/Epinephrine 1:200,000/PF 30 ml Vial ONE (06:30)
[2023-02-04] MEDS ORDERED: diphenhydrAMINE 25 MG CAP PO PRN (06:44)
[2023-02-04] MEDS ORDERED: Acetaminophen 325 MG TAB PO PRN (06:44)
[2023-02-04] MEDS ORDERED: HYDROcodone/Acetaminophen 10/325 mg Tablet PO PRN ×3 (06:44→09:00)
[2023-02-04] MEDS ORDERED: Fentanyl 100 MCG/2 ML VIAL SLOW IVP PRN ×2 (06:44)
[2023-02-04] MEDS ORDERED: Promethazine HCl 25 MG/ML VIAL IM PRN ×2 (06:44→08:45)
[2023-02-04] MEDS ORDERED: Ondansetron PF 4 MG/2 ML Vial IVP PRN ×2 (06:44→08:45)
[2023-02-04] MEDS ORDERED: Zolpidem Tartrate 5 MG TAB PO PRN ×2 (06:44→08:45)
[2023-02-04] MEDS ORDERED: CEFAZOLIN 2 GM VIAL ONE (06:58)
[2023-02-04 07:16] LABS: SARS-CoV-2 NAA Rapid Test Not Detected (NotDetected)
[2023-02-04] MEDS ORDERED: Mometasone 100 MCG/PUFF (1 INHALER) INH PRN (07:20)
[2023-02-04] MEDS ORDERED: Docusate Sodium 100 MG/10 ML UDCUP PO PRN (07:23)
[2023-02-04] MEDS ORDERED: HYDROmorphone 2 MG/ML VIAL ONE (07:52)
[2023-02-04] MEDS ORDERED: HYDROmorphone 2 MG/ML VIAL SLOW IVP PRN (08:24)
[2023-02-04] MEDS ORDERED: Ondansetron HCl/PF 4 MG/2 ML Vial IVP PRN (08:24)
[2023-02-04] MEDS ORDERED: Ropivacaine 0.2% 550 ML 550 ML NERVE BLCK SCH (08:45)
[2023-02-04] MEDS ORDERED: Fentanyl 100 MCG/2 ML VIAL IV PRN (08:52)
[2023-02-04] MEDS ORDERED: Labetalol HCl 100 MG/20 ML VIAL SLOW IVP PRN (08:59)
[2023-02-04] MEDS ORDERED: Milnacipran Hcl [Savella] 100 MG Tablet PO SCH (09:00)
[2023-02-04] MEDS ORDERED: Aspirin Chewable 81 MG TAB PO SCH (09:00)
[2023-02-04] MEDS ORDERED: traMADol HCl 50 MG TAB PO PRN ×2 (09:00)
[2023-02-04] MEDS ORDERED: HYDROmorphone 0.5 MG/0.5 ML SYRINGE ONE ×2 (09:02→13:41)
[2023-02-04] MEDS ORDERED: Fentanyl 100 MCG/2 ML VIAL ONE (09:44)
[2023-02-04] MEDS ORDERED: Promethazine HCl 25 MG/ML VIAL ONE (14:16)
[2023-02-04] MEDS: Sodium Chloride 0.9% 1,000 ML IV SCH ×2 (14:59→16:34)
[2023-02-04 15:07] VITALS: BMI 35.3
[2023-02-04] MEDS: Multivitamin W/ Minerals 1 TAB PO SCH (15:08)
[2023-02-04] MEDS: Aspirin 81 mg Enteric Coated Tablet PO SCH ×2 (15:08→21:22)
[2023-02-04] MEDS: Gabapentin 300 MG CAP PO SCH ×2 (15:08→21:23)
[2023-02-04] MEDS: Atorvastatin Calcium 40 MG TAB PO SCH (15:08)
[2023-02-04] MEDS: Lisinopril/Hydrochlorothiazide 20 mg/12.5 mg Tablet PO SCH (15:08)
[2023-02-04] MEDS: cycloSPORINE 0.05% Ophthalmic Droperette EA EYE SCH ×2 (15:08→21:25)
[2023-02-04] MEDS: Magnesium Oxide 250 MG TAB PO SCH (15:08)
[2023-02-04] MEDS: Loratadine 10 MG TAB PO SCH (15:08)
[2023-02-04] MEDS: Calcium Carbonate 600 MG + Vit D TAB PO SCH (15:08)
[2023-02-04] MEDS: Icosapent Ethyl 1 GM CAPSULE PO SCH ×2 (15:08→21:26)
[2023-02-04] MEDS: Cholecalciferol 1,000 UNITS (25 MCG) TAB PO SCH (15:08)
[2023-02-04] MEDS: Ketorolac Tromethamine 30 MG/ML VIAL IVP SCH ×7 (15:09→23:12)
[2023-02-04] MEDS: CO Q-10 CAPSULE 100 MG PO SCH (15:09)
[2023-02-04] MEDS: sulfaSALAzine 500 MG TAB PO SCH ×2 (15:09→21:22)
[2023-02-04] MEDS: CEFAZOLIN 2 GM in Sodium Chloride 0.9% 100 ML IVPB SCH ×2 (15:28→23:13)
[2023-02-04] MEDS ORDERED: ALPRAZolam 0.25 MG TAB PO SCH (21:00)
[2023-02-04] MEDS: HYDROcodone/Acetaminophen 10/325 mg Tablet PO PRN (21:27)
[2023-02-05] MEDS: Sodium Chloride 0.9% 1,000 ML IV SCH (02:06)
[2023-02-05 05:16] VITALS: TEMP 97.8
[2023-02-05] MEDS: Ketorolac Tromethamine 30 MG/ML VIAL IVP SCH (05:35)
[2023-02-05 06:33] LABS: Hemoglobin 9.6 g/dL (12.0-16.0); Mean Corpuscular HGB CONC 31.4 g/dL (32.0-36.0); Mean Corpuscular Hemoglobin 28.3 pg (27.0-31.0); Mean Corpuscular Volume 90.4 fl (78.0-98.0); Mean Platelet Volume 8.1 fL (7.4-10.4); Platelet Count 345 10x3/uL (130-400); RBC Distribution Width 13.8 % (11.5-14.5); Red Blood Cell (RBC) Count 3.37 mill/uL (4.20-5.40); White Blood Cell (WBC) Count 9.1 10x3/uL (4.8-10.8)
[2023-02-05 07:47] VITALS: BP 131/78
[2023-02-05] MEDS ORDERED: Multivitamin W/ Minerals 1 TAB PO SCH (09:00)
[2023-02-05] MEDS ORDERED: Ferrous Gluconate 324 MG TAB PO SCH (09:00)
[2023-02-05] MEDS ORDERED: Senokot S 8.6-50 MG TAB PO SCH (09:00)
[2023-02-05] MEDS: CO Q-10 CAPSULE 100 MG PO SCH (09:26)
[2023-02-05] MEDS: sulfaSALAzine 500 MG TAB PO SCH (09:26)
[2023-02-05] MEDS: Magnesium Oxide 250 MG TAB PO SCH (09:27)
[2023-02-05] MEDS: Calcium Carbonate 600 MG + Vit D TAB PO SCH (09:27)
[2023-02-05] MEDS: Multivitamin W/ Minerals 1 TAB PO SCH (09:27)
[2023-02-05] MEDS: Cholecalciferol 1,000 UNITS (25 MCG) TAB PO SCH (09:28)
[2023-02-05] MEDS: Lisinopril/Hydrochlorothiazide 20 mg/12.5 mg Tablet PO SCH (09:28)
[2023-02-05] MEDS: Icosapent Ethyl 1 GM CAPSULE PO SCH (09:28)
[2023-02-05] MEDS: Atorvastatin Calcium 40 MG TAB PO SCH (09:28)
[2023-02-05] MEDS: Aspirin 81 mg Enteric Coated Tablet PO SCH (09:28)
[2023-02-05] MEDS: Loratadine 10 MG TAB PO SCH (09:28)
[2023-02-05] MEDS: cycloSPORINE 0.05% Ophthalmic Droperette EA EYE SCH (09:29)
[2023-02-05] MEDS: Gabapentin 300 MG CAP PO SCH (09:29)
[2023-02-05] MEDS: HYDROcodone/Acetaminophen 10/325 mg Tablet PO PRN (10:06)
== END 2023-02-05 11:20 | disposition home health service (06) ==
LOC: SDC 05:41 → SURG A 15:12
PROVIDERS: ADMIT Orthopaedic Surgery; ATTEND Orthopaedic Surgery
PROC: 0SRC0J9 Replacement of Right Knee Joint with Synthetic Substitute, Cemented, Open Approach (ICD-10-PCS; principal; 2023-02-04)
DX: M17.11 Unilateral primary osteoarthritis, right knee (principal); G47.33 Obstructive sleep apnea (adult) (pediatric); I10 Essential (primary) hypertension; G89.29 Other chronic pain; M54.9 Dorsalgia, unspecified; M19.90 Unspecified osteoarthritis, unspecified site; M79.7 Fibromyalgia; E78.00 Pure hypercholesterolemia, unspecified; J45.909 Unspecified asthma, uncomplicated; Z79.1 Long term (current) use of non-steroidal anti-inflammatories (NSAID); Z79.899 Other long term (current) drug therapy; Z96.643 Presence of artificial hip joint, bilateral; Z96.652 Presence of left artificial knee joint; Z20.822 Contact with and (suspected) exposure to COVID-19
CPT/HCPCS: 20985; 27447; 73560; 85027; 97110 ×2; 97116 ×2; 97530; A4306; J3370; U0002; 36415; 96374; 96375; 96376; C1713; C1776; G0378; J1100; J1170; J1885; J2250; J2405; J2550; J2704; J2795; J3010; J3490; S0020

== ENCOUNTER 2023-03-20 13:53 | Emergency (ER) | payer MEDICARE ==
[2023-03-20 14:49] LABS: #Eosinphils 0.2 thou/uL (0.0-0.7); #Lymphocytes 1.2 thou/uL (1.20-3.40); #Monocytes 0.4 thou/uL (0.11-0.59); #Neutrophils 14.7 thou/uL (1.40-6.50); %Basophils 0.2 % (0.0-1.0); %Eosinophils 1.5 % (0.0-10.0); %Monocytes 2.3 % (0.0-10.0); %Neutrophils 89.1 % (42.0-75.0); Hemoglobin 10.4 g/dL (12.0-16.0); Mean Corpuscular HGB CONC 30.1 g/dL (32.0-36.0); Mean Corpuscular Hemoglobin 25.8 pg (27.0-31.0); Mean Corpuscular Volume 85.8 fl (78.0-98.0); Mean Platelet Volume 7.6 fL (7.4-10.4); Platelet Count 455 10x3/uL (130-400); RBC Distribution Width 14.2 % (11.5-14.5); Red Blood Cell (RBC) Count 4.02 mill/uL (4.20-5.40); White Blood Cell (WBC) Count 16.5 10x3/uL (4.8-10.8)
[2023-03-20] MEDS ORDERED: Aspirin Chewable 81 MG TAB ONE (14:57)
[2023-03-20 15:11] LABS: ALT (SGPT) 22 U/L (8-55); AST (SGOT) 27 U/L (5-34); Alkaline Phosphatase 64 U/L (40-110); Anion Gap 14 mmol/L (10-20); BUN (Urea Nitrogen) 15 mg/dL (9.8-20.1); Bilirubin, Total 0.2 mg/dL (0.2-1.2); Calc. Creatinine Clearance 0 mL/min (70-130); Calcium 9.6 mg/dL (7.8-10.44); Carbon Dioxide 25 mmol/L (23-31); Chloride 104 mmol/L (98-107); Estimated GFR 75; Globulin 2.7 g/dL (2.4-3.5); Glucose 103 mg/dL (83-110); Lipase 38 U/L (8-78); Potassium 3.9 mmol/L (3.5-5.1); Protein, Total 6.7 g/dL (5.8-8.1); Sodium 139 mmol/L (136-145)
[2023-03-20] MEDS ORDERED: Iopamidol-370 76% 500 ML MDV (1 ML CHARGE) ONE (15:28)
[2023-03-20] MEDS ORDERED: Morphine 4 MG/ML VIAL ONE (17:11)
== END 2023-03-20 18:46 | disposition home or self-care (01) ==
LOC: ERS 13:53
DX: I26.99 Other pulmonary embolism without acute cor pulmonale (principal); D72.829 Elevated white blood cell count, unspecified; E78.5 Hyperlipidemia, unspecified; K21.9 Gastro-esophageal reflux disease without esophagitis; Z79.899 Other long term (current) drug therapy
CPT/HCPCS: 71045; 71275; 80053; 83690; 84484; 85025; 93005; 96361; 96372; 96374; J1650; J2270; Q9967

== ENCOUNTER 2023-09-10 11:22 | Outpatient (CLI) | payer MEDICARE | END 2023-09-10 11:23 | disposition home or self-care (01) | LOC: BICMAMMO 11:22 | PROVIDERS: ATTEND Internal Medicine | DX: Z12.31 Encounter for screening mammogram for malignant neoplasm of breast (principal); Z91.89 Other specified personal risk factors, not elsewhere classified | CPT/HCPCS: 77063; 77067 ==

== ENCOUNTER 2023-11-18 07:39 | Outpatient (CLI) | payer MEDICARE | END 2023-11-18 07:40 | disposition home or self-care (01) | LOC: SCSMRI 07:39 | PROVIDERS: ATTEND Internal Medicine Gastroenterology | DX: K76.9 Liver disease, unspecified (principal); K44.9 Diaphragmatic hernia without obstruction or gangrene | CPT/HCPCS: 74183 ==

== ENCOUNTER 2024-01-22 14:00 | Inpatient (IN) | payer MEDICARE ==
[2024-01-22 14:53] VITALS: BMI 34.8
[2024-01-29] MEDS ORDERED: Bupivacaine 0.25% HCL 30 ML VIAL ONE (06:46)
[2024-01-29] MEDS ORDERED: EPINEPHrine 1 MG/ML VIAL ONE (06:46)
[2024-01-29] MEDS ORDERED: Heparin 5,000 UNITS/ML VIAL ONE (07:04)
[2024-01-29] MEDS ORDERED: Sodium Chloride 0.9% 100 ML ONE (07:05)
[2024-01-29] MEDS ORDERED: CEFAZOLIN 2 GM VIAL ONE (07:05)
[2024-01-29] MEDS ORDERED: Ondansetron PF 4 MG/2 ML Vial ONE (07:25)
[2024-01-29] MEDS ORDERED: Lidocaine 1% PF 5 ML VIAL ONE (07:25)
[2024-01-29] MEDS ORDERED: SUCCINYLCHOLINE/SOD CL,ISO/PF 200 MG/10 ML SYRINGE FS ONE (07:25)
[2024-01-29] MEDS ORDERED: PROPOFOL 20 ML ONE ×2 (07:25→08:06)
[2024-01-29] MEDS ORDERED: Rocuronium Bromide 10 MG/ML (10ML VIAL) ONE (07:26)
[2024-01-29] MEDS ORDERED: fentaNYL PF 100 MCG/2 ML SYRINGE ONE (07:27)
[2024-01-29] MEDS ORDERED: MINERAL OIL/WHITE PETROLATUM 3.5 GM TUBE ONE (07:27)
[2024-01-29] MEDS ORDERED: Dexamethasone 20 MG/5 ML VIAL ONE (07:44)
[2024-01-29] MEDS ORDERED: HYDROmorphone 2 MG/ML VIAL ONE (08:03)
[2024-01-29] MEDS ORDERED: Labetalol HCl 100 MG/20 ML VIAL ONE (08:09)
[2024-01-29] MEDS ORDERED: HYDROmorphone 2 MG/ML VIAL SLOW IVP PRN (08:51)
[2024-01-29] MEDS ORDERED: Meperidine HCl/PF 25 MG/ML VIAL SLOW IVP PRN (08:51)
[2024-01-29] MEDS ORDERED: Morphine Sulfate 2 MG/ML SYRINGE SLOW IVP PRN (08:51)
[2024-01-29] MEDS ORDERED: Promethazine HCl 25 MG/ML VIAL IM PRN ×3 (08:51→10:09)
[2024-01-29] MEDS ORDERED: Ondansetron HCl/PF 4 MG/2 ML Vial IVP PRN (08:51)
[2024-01-29] MEDS ORDERED: NEOSTIGMINE 3 MG/3 ML SYR 3 MG/3 ML SYRINGE ONE (09:38)
[2024-01-29] MEDS ORDERED: Glycopyrrolate 0.2 MG/ML 5 ML SYRINGE ONE (09:38)
[2024-01-29] MEDS ORDERED: hydrALAZINE 20 MG/ML VIAL SLOW IVP PRN (09:51)
[2024-01-29] MEDS ORDERED: Dextrose 50% Abboject 50 ML SYRINGE SLOW IVP PRN (09:51)
[2024-01-29] MEDS ORDERED: diphenhydrAMINE 50 MG/ML VIAL IVP PRN ×2 (09:51→10:09)
[2024-01-29] MEDS ORDERED: Glucagon 1 MG/ML KIT IM PRN (09:51)
[2024-01-29] MEDS ORDERED: Ondansetron PF 4 MG/2 ML Vial IVP PRN ×2 (09:51→10:09)
[2024-01-29] MEDS ORDERED: Dextrose 5% in Water 1,000 ML IV PRN (09:51)
[2024-01-29] MEDS ORDERED: Ipratropium/Albuterol 3 ML NEB NEB PRN (09:51)
[2024-01-29] MEDS ORDERED: SUGAMMADEX SODIUM 200 MG/2 ML VIAL ONE (09:53)
[2024-01-29] MEDS ORDERED: Naloxone HCl 0.4 mg/ml Vial IV PRN (10:09)
[2024-01-29] MEDS ORDERED: diphenhydrAMINE 50 MG/ML VIAL IM PRN (10:09)
[2024-01-29] MEDS ORDERED: HYDROmorphone/PF 10 MG in Sodium Chloride 0.9% 99 ML IV PRN (10:09)
[2024-01-29] MEDS ORDERED: diphenhydrAMINE 25 MG CAP PO PRN (10:09)
[2024-01-29] MEDS ORDERED: Communication Order-Pharmacy FS SCH (10:15)
[2024-01-29] MEDS ORDERED: Ketorolac Tromethamine 30 MG (1 mL) VIAL IVP SCH (12:00)
[2024-01-29] MEDS: CEFAZOLIN 2 GM in Sodium Chloride 0.9% 100 ML IVPB SCH (13:55)
[2024-01-29] MEDS: D5 1/2 NS w/20 mEq KCL 1,000 ML IV SCH (13:56)
[2024-01-29] MEDS: Enoxaparin 40 MG (0.4 mL) SYRINGE SC SCH (20:45)
[2024-01-30 05:10] LABS: #Monocytes 1.2 thou/uL (0.11-0.59); %Basophils 0.1 % (0.0-1.0); %Lymphocytes 6.9 % (21.0-51.0); %Monocytes 9.6 % (0.0-10.0); %Neutrophils 82.9 % (42.0-75.0); Hematocrit 40.3 % (36.0-47.0); Hemoglobin 13.4 g/dL (12.0-16.0); Mean Corpuscular HGB CONC 33.3 g/dL (32.0-36.0); Mean Corpuscular Hemoglobin 32.1 pg (27.0-31.0); Mean Corpuscular Volume 96.4 fl (78.0-98.0); Mean Platelet Volume 10.4 fL (7.4-10.4); Platelet Count 219 10x3/uL (130-400); RBC Distribution Width 13.2 % (11.5-14.5); Red Blood Cell (RBC) Count 4.18 mill/uL (4.20-5.40); White Blood Cell (WBC) Count 12.1 10x3/uL (4.8-10.8)
[2024-01-30 05:35] LABS: Anion Gap 15 mmol/L (10-20); BUN (Urea Nitrogen) 10 mg/dL (9.8-20.1); Calc. Creatinine Clearance 94 mL/min (70-130); Calcium 9.2 mg/dL (7.8-10.44); Carbon Dioxide 25 mmol/L (23-31); Chloride 105 mmol/L (98-107); Estimated GFR 79; Glucose 141 mg/dL (83-110); Potassium 4.2 mmol/L (3.5-5.1); Sodium 141 mmol/L (136-145)
[2024-01-30] MEDS: Pantoprazole 40 MG VIAL IVP SCH (09:18)
[2024-01-30 12:26] VITALS: BP 121/80; TEMP 98
[2024-01-30] MEDS: Hydrocodone-Acetamin 15 ML UDCUP PO PRN (13:47)
== END 2024-01-30 14:07 | disposition home or self-care (01) | DRG 328 ==
LOC: SURG A 01-29 06:06 → SURG B 01-29 13:18 → EDSTATUS 01-29 14:00
PROVIDERS: ADMIT Surgery; ATTEND Surgery
PROC: 0BUT4JZ Supplement Diaphragm with Synthetic Substitute, Percutaneous Endoscopic Approach (ICD-10-PCS; principal; 2024-01-29)
PROC: 8E0W4CZ Robotic Assisted Procedure of Trunk Region, Percutaneous Endoscopic Approach (ICD-10-PCS; 2024-01-29)
DX: K44.9 Diaphragmatic hernia without obstruction or gangrene (principal); Z79.899 Other long term (current) drug therapy; E78.00 Pure hypercholesterolemia, unspecified; M19.90 Unspecified osteoarthritis, unspecified site; D64.9 Anemia, unspecified; I10 Essential (primary) hypertension; Z90.710 Acquired absence of both cervix and uterus; Z98.890 Other specified postprocedural states; Z82.49 Family history of ischemic heart disease and other diseases of the circulatory system
CPT/HCPCS: 36415; 80048; 85025; C1781; C9113; J0171; J0665; J1100; J1170; J1644; J1650; J2405; J2704; J3480; J3490

== ENCOUNTER 2024-01-31 19:06 | Emergency (ER) | payer MEDICARE ==
[2024-01-31 19:58] LABS: #Eosinphils 0.1 thou/uL (0.0-0.7); #Monocytes 1.2 thou/uL (0.11-0.59); #Neutrophils 7.5 thou/uL (1.40-6.50); %Basophils 0.3 % (0.0-1.0); %Eosinophils 0.6 % (0.0-10.0); %Lymphocytes 15.8 % (21.0-51.0); %Monocytes 11.3 % (0.0-10.0); %Neutrophils 71.7 % (42.0-75.0); Hematocrit 43.2 % (36.0-47.0); Hemoglobin 14.7 g/dL (12.0-16.0); Mean Corpuscular Hemoglobin 31.7 pg (27.0-31.0); Mean Corpuscular Volume 93.3 fl (78.0-98.0); Mean Platelet Volume 9.7 fL (7.4-10.4); Platelet Count 205 10x3/uL (130-400); RBC Distribution Width 13.2 % (11.5-14.5); Red Blood Cell (RBC) Count 4.63 mill/uL (4.20-5.40); White Blood Cell (WBC) Count 10.4 10x3/uL (4.8-10.8)
[2024-01-31 20:15] LABS: ALT (SGPT) 124 U/L (8-55); AST (SGOT) 78 U/L (5-34); Albumin 4.3 g/dL (3.4-4.8); Alkaline Phosphatase 66 U/L (40-110); Anion Gap 14 mmol/L (10-20); BUN (Urea Nitrogen) 7 mg/dL (9.8-20.1); Bilirubin, Total 1.2 mg/dL (0.2-1.2); Calc. Creatinine Clearance 0 mL/min (70-130); Calcium 9.6 mg/dL (7.8-10.44); Carbon Dioxide 25 mmol/L (23-31); Chloride 101 mmol/L (98-107); Estimated GFR 86; Globulin 2.7 g/dL (2.4-3.5); Glucose 122 mg/dL (83-110); Lipase 36 U/L (8-78); Potassium 3.7 mmol/L (3.5-5.1); Sodium 136 mmol/L (136-145)
[2024-01-31 20:16] LABS: INR-International Normal Ratio 1.1; Prothrombin Time 13.9 sec (12.0-14.7)
[2024-01-31 20:17] LABS: PTT 31.4 sec (22.9-36.1)
[2024-01-31 20:19] LABS: Troponin I 0.012 ng/mL (< 0.028)
== END 2024-01-31 21:49 | disposition home or self-care (01) ==
LOC: ERS 19:06
DX: S09.90XA Unspecified injury of head, initial encounter (principal); I10 Essential (primary) hypertension; I26.99 Other pulmonary embolism without acute cor pulmonale; E78.5 Hyperlipidemia, unspecified; W22.8XXA Striking against or struck by other objects, initial encounter; Z79.01 Long term (current) use of anticoagulants
CPT/HCPCS: 70450; 71045; 71275; 80053; 83690; 83880; 84484; 85025; 85610; 85730; 93005

== ENCOUNTER 2024-08-14 08:05 | Inpatient (IN) | payer MEDICARE ==
[2024-08-14 09:14] LABS: #Basophils 0.03 10x3/uL (0.0-0.2); %Basophils 0.3 % (0.0-1.0); %Eosinophils 1.4 % (0.0-10.0); %Lymphocytes 11.9 % (21.0-51.0); %Monocytes 4.5 % (0.0-10.0); %Neutrophils 81.5 % (42.0-75.0); Hematocrit 38.5 % (36.0-47.0); Hemoglobin 13.9 g/dL (12.0-16.0); Mean Corpuscular HGB CONC 36.1 g/dL (32.0-36.0); Mean Corpuscular Hemoglobin 32.9 pg (27.0-31.0); Mean Corpuscular Volume 91.2 fL (78.0-98.0); Platelet Count 326 10x3/uL (130-400); Red Blood Cell (RBC) Count 4.22 mill/uL (4.20-5.40)
[2024-08-14 09:38] LABS: Acetaminophen Less than 10 mcg/mL (Less than 10); Alcohol Less than 10.0 mg/dL (Less than 10); Salicylate Less than 8.0 mg/dL (Less than 8.0)
[2024-08-14 09:39] LABS: ALT (SGPT) 14 U/L (8-55); AST (SGOT) 18 U/L (5-34); Albumin 3.8 g/dL (3.4-4.8); Alkaline Phosphatase 78 U/L (40-110); Anion Gap 16 mmol/L (10-20); BUN (Urea Nitrogen) 9 mg/dL (9.8-20.1); Bilirubin, Total 0.7 mg/dL (0.2-1.2); CK (CPK) 30 U/L (29-168); Calc. Creatinine Clearance 0 mL/min (70-130); Calcium 9.5 mg/dL (7.8-10.44); Carbon Dioxide 24 mmol/L (23-31); Chloride 96 mmol/L (98-107); Estimated GFR 83; Globulin 3.4 g/dL (2.4-3.5); Glucose 138 mg/dL (83-110); Potassium 2.7 mmol/L (3.5-5.1); Protein, Total 7.2 g/dL (5.8-8.1); Sodium 133 mmol/L (136-145)
[2024-08-14 09:44] LABS: Troponin I Less than 0.010 ng/mL (< 0.028)
[2024-08-14 10:10] LABS: Bacteria/HPF None Seen HPF (None Seen); Bilirubin Negative (Negative); Blood, Urine Negative (Negative); CAUTI Indications for Culture Alt mental st,lethar; Clarity Clear (Clear); Glucose, Urine (Dipstick) Normal (Negative); Ketone, Urine Negative (Negative); Leukocyte Negative Leu/uL (Negative); Nitrite Negative (Negative); Protein, Urine (Dipstick) Negative (Neg-Trace); RBC/HPF 0-3 HPF (0-3); Specific Gravity, Urine 1.006 (1.002-1.036); Squamous Epithelial 0-3 HPF (0-3); Urobilinogen Normal mg/dL (Less than 2); WBC/HPF 0-3 HPF (0-3); pH, Urine 7.5 (5.0-9.0)
[2024-08-14 10:12] LABS: Urine Culture Reflex No No
[2024-08-14] MEDS ORDERED: Potassium Chloride 20 MEQ TAB ONE (10:14)
[2024-08-14] MEDS ORDERED: hydrALAZINE 20 MG/ML VIAL ONE (10:14)
[2024-08-14] MEDS ORDERED: Morphine 2 MG/ML VIAL ONE ×2 (10:16→12:03)
[2024-08-14 10:19] LABS: Amphetamine Not Detected (NotDetected); Barbiturates Screen Not Detected (NotDetected); Benzodiazepine Screen Not Detected (NotDetected); Cocaine Metabolite Screen Not Detected (NotDetected); Methadone Not Detected (NotDetected); Methamphetamine Not Detected (NotDetected); Opiate Screen Not Detected (NotDetected); Oxycodone Screen Not Detected (NotDetected); Phencyclidine (PCP) Not Detected (NotDetected); THC/Cannabinoid Screen Not Detected (NotDetected); Tricyclic Screen Not Detected (NotDetected)
[2024-08-14] MEDS ORDERED: Ondansetron PF 4 MG/2 ML Vial IVP PRN (11:49)
[2024-08-14] MEDS ORDERED: Non-Formulary Item 1 EACH (Docusate Sodium [Stool Softener] 50 MG Capsule) PO PRN (11:54)
[2024-08-14] MEDS: Morphine 2 MG/ML VIAL SLOW IVP SCH (12:30)
[2024-08-14] MEDS: Sodium Chloride 0.9% 1,000 ML IV SCH (12:30)
[2024-08-14] MEDS ORDERED: Acetaminophen 650 MG Suppository ONE (15:17)
[2024-08-14] MEDS ORDERED: Potassium Chloride 20 MEQ (100 mL) BAG ONE (15:53)
[2024-08-14] MEDS: Potassium Chloride 20 MEQ in Premix 1 BAG IVPB SCH (16:15)
[2024-08-14] MEDS: Acetaminophen 650 MG Suppository PR SCH (17:28)
[2024-08-14 18:07] VITALS: BMI 29.7
[2024-08-14] MEDS: Apixaban 5 MG TAB PO SCH (19:21)
[2024-08-14] MEDS: Famotidine/PF 20 mg/2ml Vial SLOW IVP SCH (20:59)
[2024-08-14] MEDS ORDERED: cycloSPORINE 0.05% Ophthalmic Droperette EA EYE SCH (21:00)
[2024-08-15] MEDS ORDERED: hydrALAZINE 20 MG/ML VIAL SLOW IVP PRN (00:27)
[2024-08-15 05:19] LABS: #Basophils 0.03 10x3/uL (0.0-0.2); #Eosinphils Less than 0.03 10x3/uL (0.0-0.7); %Basophils 0.3 % (0.0-1.0); %Eosinophils 0.2 % (0.0-10.0); %Lymphocytes 19.5 % (21.0-51.0); %Monocytes 10.7 % (0.0-10.0); %Neutrophils 68.9 % (42.0-75.0); Hematocrit 38.3 % (36.0-47.0); Hemoglobin 13.3 g/dL (12.0-16.0); Mean Corpuscular HGB CONC 34.7 g/dL (32.0-36.0); Mean Corpuscular Hemoglobin 32.8 pg (27.0-31.0); Mean Corpuscular Volume 94.3 fL (78.0-98.0); Mean Platelet Volume 8.9 fL (7.4-10.4); Platelet Count 308 10x3/uL (130-400); RBC Distribution Width 13.4 % (11.5-14.5); Red Blood Cell (RBC) Count 4.06 mill/uL (4.20-5.40)
[2024-08-15 05:45] LABS: ALT (SGPT) 10 U/L (8-55); AST (SGOT) 14 U/L (5-34); Albumin 3.3 g/dL (3.4-4.8); Alkaline Phosphatase 63 U/L (40-110); Anion Gap 14 mmol/L (10-20); BUN (Urea Nitrogen) 9 mg/dL (9.8-20.1); Bilirubin, Total 0.5 mg/dL (0.2-1.2); Calc. Creatinine Clearance 74 mL/min (70-130); Calcium 9.4 mg/dL (7.8-10.44); Carbon Dioxide 26 mmol/L (23-31); Chloride 100 mmol/L (98-107); Estimated GFR 77; Globulin 3.1 g/dL (2.4-3.5); Glucose 109 mg/dL (83-110); Potassium 2.8 mmol/L (3.5-5.1); Protein, Total 6.4 g/dL (5.8-8.1); Sodium 137 mmol/L (136-145)
[2024-08-15] MEDS: ALPRAZolam 0.25 MG TAB PO PRN (08:26)
[2024-08-15] MEDS ORDERED: Enoxaparin 30 MG (0.3 mL) SYRINGE SC SCH (09:00)
[2024-08-15] MEDS: Magnesium 2 GM/50 ML(in water) 2 GM in Premix 1 BAG IVPB SCH (11:14)
[2024-08-15] MEDS: Potassium Chloride 20 MEQ TAB PO SCH (11:15)
[2024-08-15] MEDS: Potassium Chloride 20 MEQ in Premix 1 BAG IVPB SCH (11:15)
[2024-08-15 13:30] VITALS: BMI 29.7
[2024-08-15] MEDS: Metoprolol Tartrate 25 MG TAB PO SCH ×2 (14:51→20:42)
[2024-08-15] MEDS: Amlodipine 10 MG TAB PO SCH (14:51)
[2024-08-15] MEDS: Atorvastatin Calcium 40 MG TAB PO SCH (20:42)
[2024-08-15] MEDS: Ketorolac Tromethamine 30 MG (1 mL) VIAL IVP PRN (20:42)
[2024-08-16 06:10] LABS: #Basophils 0.05 10x3/uL (0.0-0.2); %Basophils 0.7 % (0.0-1.0); %Eosinophils 1.1 % (0.0-10.0); %Monocytes 11.5 % (0.0-10.0); %Neutrophils 66.6 % (42.0-75.0); Hematocrit 38.9 % (36.0-47.0); Hemoglobin 13.1 g/dL (12.0-16.0); Mean Corpuscular HGB CONC 33.7 g/dL (32.0-36.0); Mean Corpuscular Hemoglobin 31.5 pg (27.0-31.0); Mean Corpuscular Volume 93.5 fL (78.0-98.0); Platelet Count 294 10x3/uL (130-400); RBC Distribution Width 13.5 % (11.5-14.5); Red Blood Cell (RBC) Count 4.16 mill/uL (4.20-5.40)
[2024-08-16 06:24] LABS: Anion Gap 13 mmol/L (10-20); BUN (Urea Nitrogen) 10 mg/dL (9.8-20.1); Calc. Creatinine Clearance 79 mL/min (70-130); Calcium 9.2 mg/dL (7.8-10.44); Carbon Dioxide 27 mmol/L (23-31); Chloride 104 mmol/L (98-107); Estimated GFR 83; Glucose 113 mg/dL (83-110); Potassium 3.3 mmol/L (3.5-5.1); Sodium 141 mmol/L (136-145)
[2024-08-16] MEDS: Amlodipine 10 MG TAB PO SCH (08:01)
[2024-08-16] MEDS: Aspirin 81 mg Enteric Coated Tablet PO SCH (08:02)
[2024-08-16] MEDS: Potassium Chloride 20 MEQ TAB PO SCH (10:47)
[2024-08-16] MEDS: Docusate Sodium 100 MG/10 ML UDCUP PO PRN (12:20)
[2024-08-17 09:00] VITALS: TEMP 98.3
[2024-08-17 11:02] LABS: #Basophils 0.06 10x3/uL (0.0-0.2); %Basophils 0.7 % (0.0-1.0); %Eosinophils 2.5 % (0.0-10.0); %Lymphocytes 18.9 % (21.0-51.0); %Monocytes 9.5 % (0.0-10.0); Hematocrit 37.7 % (36.0-47.0); Hemoglobin 12.8 g/dL (12.0-16.0); Mean Corpuscular Hemoglobin 31.8 pg (27.0-31.0); Mean Corpuscular Volume 93.5 fL (78.0-98.0); Mean Platelet Volume 9.1 fL (7.4-10.4); Platelet Count 323 10x3/uL (130-400); RBC Distribution Width 13.2 % (11.5-14.5); Red Blood Cell (RBC) Count 4.03 mill/uL (4.20-5.40)
[2024-08-17 12:01] LABS: Anion Gap 13 mmol/L (10-20); BUN (Urea Nitrogen) 12 mg/dL (9.8-20.1); Calc. Creatinine Clearance 76 mL/min (70-130); Calcium 9.2 mg/dL (7.8-10.44); Carbon Dioxide 22 mmol/L (23-31); Chloride 102 mmol/L (98-107); Estimated GFR 79; Glucose 112 mg/dL (83-110); Potassium 3.2 mmol/L (3.5-5.1); Sodium 134 mmol/L (136-145)
[2024-08-17 12:53] VITALS: BP 145/90
== END 2024-08-17 13:58 | disposition home or self-care (01) | DRG 72 ==
LOC: ERS 08:05 → ERHOLD 11:10 → OBSVTOIN 11:49 → 2SE 16:47
PROVIDERS: ADMIT Family Medicine; ATTEND Internal Medicine
PROC: 4A00X4Z Measurement of Central Nervous Electrical Activity, External Approach (ICD-10-PCS; principal; 2024-08-14)
DX: G93.41 Metabolic encephalopathy (principal); E87.6 Hypokalemia; I10 Essential (primary) hypertension; Z79.899 Other long term (current) drug therapy; Z79.01 Long term (current) use of anticoagulants; Z86.711 Personal history of pulmonary embolism; Z90.710 Acquired absence of both cervix and uterus; Z98.51 Tubal ligation status; M19.90 Unspecified osteoarthritis, unspecified site; Z98.890 Other specified postprocedural states; D72.829 Elevated white blood cell count, unspecified
CPT/HCPCS: 36415; 51701; 70450; 70551; 71045; 74177; 80048; 80053; 80306; 80307; 81001; 82140; 82550; 83690; 83880; 84443; 84484; 85025; 93005; 93306; 94760; 95700; 95711; 95819; 96374; 96375; J0360; J1885; J2272; J3475; J3480; J3490; J7030